=== PATIENT | female | born 1935 | race Caucasian/White ===

== ENCOUNTER → 2018-07-10 11:50 | Outpatient (CLI) | payer MEDICARE, OTHER, SELFPAY ==
--- NOTE | 2018-07-10 | DI.MRI.S_ITS ---
PROCEDURE: MR SHOULDER RT WO CON INDICATIONS: RIGHT SHOULDER PAIN TECHNIQUE: Noncontrast oblique coronal T2 fast spin echo with fat saturation, oblique sagittal T1 spin echo and T2 fast spin echo with fat saturation, axial T1 spin echo and T2 fast spin echo with fat saturation through the shoulder. COMPARISON: None. FINDINGS: Image quality: Excellent. Rotator cuff: There is full-thickness rupture of distal supraspinatus at its insertion on greater tuberosity of humeral head with 1.2 cm medial retraction of torn tendon fibers to the level of the acromion. Tendinosis and moderate grade articular surface partial-thickness tear involving distal infraspinatus is seen at its insertion on greater tuberosity of humeral head extending to the musculotendinous junction. Tendinosis of a moderate grade intrasubstance partial thickness involving distal subscapularis is seen extending to musculotendinous junction with suggestion of subscapularis muscle strain. Sagittal images demonstrate mild supraspinatus muscle atrophy. Bones and bursae: No bone marrow contusions or fractures. 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 The acromion demonstrates conventional anatomy, without an os acromiale. No pathologic subacromial-subdeltoid or subcoracoid bursal fluid is present. Capsule and soft tissues: In the absence of intra-articular contrast, there is signal abnormality and contour irregularity involving the superior anterior labrum from 12 to 2:00 position suggestive of superior anterior labral tear. The glenohumeral ligaments appear intact. The long head of the biceps tendon demonstrates normal location and morphology. The rotator interval appears normal, without fibrosis. The coracohumeral ligament is normal in thickness. IMPRESSION: 1. Full-thickness rupture of distal supraspinatus at its insertion on greater tuberosity of humeral head with 1.2 cm medial retraction of torn tendon fibers to the level of acromion. Mild supraspinatus muscle atrophy. 2. Tendinosis and moderately articular surface partial-thickness tear involving distal infraspinatus extending to musculotendinous junction. 3. Tendinosis and moderate grade intrasubstance partial thickness involving distal subscapularis extending to musculotendinous junction with suggestion of lateral subscapularis muscle strain. 4. Moderate acromioclavicular joint and glenohumeral joint osteoarthritis. 5. Suggestion of superior anterior labral tear from 12 to 2:00 position. Dictated by: Gerald Estevez M.D. on 07/10/2018 at 15:28 Approved by: Gerald Estevez M.D. on 07/10/2018 at 15:34
== END ==
PROVIDERS: PCP Physician Assistant Medical; Visit Provider Physician Assistant Medical
DX: M25.511 Pain in right shoulder (principal); M75.121 Complete rotator cuff tear or rupture of right shoulder, not specified as traumatic; M19.011 Primary osteoarthritis, right shoulder
CPT/HCPCS: 73221

== ENCOUNTER → 2020-04-13 13:30 | Outpatient (CLI) | payer MEDICARE, OTHER, SELFPAY ==
--- NOTE | 2020-04-13 13:32 | DI.RAD.S_ITS ---
PROCEDURE: XR HIP W PEL IF DONE LT 2V INDICATIONS: l hip pain TECHNIQUE: AP pelvis with lateral view(s) of the left hip(s). COMPARISON: None. FINDINGS: Bones: No fractures or dislocations. Degenerative disc height loss and endplate spurring in the lumbar spine. Pelvic ring appears intact. No suspicious bony lesions. Soft tissues: The visualized bowel gas pattern is normal. No suspicious soft tissue calcifications. Right hip cartilaginous calcification. IMPRESSION: Intact pelvis and left hip. Dictated by: Ena Guerrero M.D. on 04/13/2020 at 13:15 Approved by: Ena Guerrero M.D. on 04/13/2020 at 13:16
== END ==
PROVIDERS: PCP Physician Assistant Medical; Referring Provider Physician Assistant; Visit Provider Physician Assistant
DX: M25.552 Pain in left hip (principal)
CPT/HCPCS: 73502

== ENCOUNTER → 2020-08-14 13:26 | Outpatient (CLI) | payer MEDICARE, OTHER, SELFPAY ==
[2020-08-14 14:22] LABS: COVID19 -Nasal RAPID Negative (Negative)
== END ==
PROVIDERS: PCP Physician Assistant Medical; Visit Provider Physician Assistant
DX: Z20.822 Contact with and (suspected) exposure to COVID-19 (principal)
CPT/HCPCS: 87635; C9803

== ENCOUNTER 2020-08-17 07:18 | Day surgery (SDC) | payer MEDICARE, OTHER, SELFPAY ==
[2020-08-17] MEDS: PROPARACAINE 0.5% OPHTH SOL 2 DROPS EYE-OP (08:05)
[2020-08-17] MEDS: CATARACT EYE COMPOUND (10 DROPS/SYRINGE) 3 DROPS EYE-OP (08:10)
[2020-08-17 08:16] VITALS: BP 149/69; PULSE 76; RESP 16; TEMP 36.8; O2SAT 98; BMI 27.1
--- NOTE | 2020-08-17 08:57 | P.OP_ITS ---
Operative Date/Time/Diagnoses Pre-op diagnosis: Nuclear cataract right eye Procedure & Clinicians Procedure: Cataract Surgery Same procedure as scheduled: Yes Surgeon: Manny Olivia Anesthesia Type: MAC +/- and Sedation Operative Notes Procedure in detail: Patient brought to the operating suite. Tetracaine drops placed in the right eye. Marking instrument was used to radha the veritcal and horizontal meridians. Patient was prepped and draped in sterile manner. Wire lid speculum was placed in the eye. Marking instrument was used to radha the 20 degree meridian. Betadine drops were placed on the eye. This was irrigated. Lidocaine jelly was placed on the eye. A paracentesis port was created with a side-port blade. 0.1 mL 1% preservative free lidocaine was injected into the anterior chamber. The anterior chamber was deepened with viscoelastic. 2.6 mm keratome was used to create a temporal clear corneal incision. Cystotome and [place] forceps were used to create continuous tear capsulorrhexis. Balanced salt solution was used to hydro dissect the nucleus. The phacoemulsification handpiece was inserted and the nucleus was removed using the stop and chop technique. The irrigation aspiration handpiece was inserted and the remaining cortex was removed. Anterior chamber was deepened with viscoelastic. An Barfield [id number] intraocular lens with a power of 20.0 was injected into the capsular bag. Irrigation aspiration handpiece was inserted and the remaining viscoelastic was removed. The lens was rotated to the 20 degree meridian. Incision was hydrated with balanced salt solution and found to be leak free with pressure with Weck- Tanya sponges. 0.1 mL Vigamox injected anterior chamber. 0.3 mL Kenalog 10 mg was injected subconjunctivally. Lid speculum was removed. The patient left the operating room in excellent condition. Complications: none Post-operative Condition: stable Disposition: same day surgery
--- NOTE | 2020-08-17 08:57 | PM.PREOP ---
Pre-operative Note Interval Note History & Physical reviewed/Exam performed by Physician: Yes Changes to H&P: No
[2020-08-17] MEDS: PHENYLEPHRINE/LIDOCAINE VIAL (OR) 0.2 ML EYE-OP (09:11)
[2020-08-17] MEDS: MOXIFLOXACIN INJ 5 MG/ML VIAL EYE-OP (09:12)
[2020-08-17] MEDS: CHONDROIDTIN/SOD HYALURONATE 1.05 ML SYRINGE INTRAOCULA (09:12)
[2020-08-17] MEDS: LIDOCAINE JELLY 2% 5 ML 1 APPLIC TOP (09:12)
[2020-08-17] MEDS: TRIAMCINOLONE 50 MG/5 ML VIAL INJ (09:12)
[2020-08-17] MEDS: TETRACAINE 0.5% OPHTH DROPS 4 ML 2 DROPS EYE-OP (09:13)
[2020-08-17] MEDS: BALANCED SALT IRRIG SOLN NO.2 500 ML, EPINEPHrine 1 MG IRR (09:13)
[2020-08-17 09:35] VITALS: BP 123/77; PULSE 71; RESP 15; TEMP 36.4; O2SAT 99
== END 2020-08-17 09:50 | disposition home or self-care (01) ==
PROVIDERS: PCP Physician Assistant Medical; Referring Provider Ophthalmology; Visit Provider Ophthalmology
PROC: (CPT 66984; principal; 2020-08-17 09:15)
DX: H25.11 Age-related nuclear cataract, right eye (principal)
CPT/HCPCS: 66984; J0171; J2250; J3301; V2787

== ENCOUNTER → 2021-08-08 12:59 | Outpatient (CLI) | payer MEDICARE, OTHER, SELFPAY ==
[2021-08-08 15:26] LABS: COVID19 -Nasal RAPID Negative (Negative)
== END ==
PROVIDERS: PCP Physician Assistant Medical; Visit Provider Ophthalmology
DX: Z20.822 Contact with and (suspected) exposure to COVID-19 (principal)
CPT/HCPCS: 87635; C9803

== ENCOUNTER 2021-08-09 08:50 | Day surgery (SDC) | payer MEDICARE, OTHER, SELFPAY ==
[2021-08-09] MEDS: CATARACT EYE COMPOUND (10 DROPS/SYRINGE) 3 DROPS EYE-OP (09:31)
[2021-08-09] MEDS: PROPARACAINE 0.5% OPHTH SOL 2 DROPS EYE-OP (09:31)
[2021-08-09 09:43] VITALS: BP 139/62; PULSE 69; RESP 16; TEMP 37.3; O2SAT 100; BMI 25.7
--- NOTE | 2021-08-09 10:07 | SUR.OPER ---
Supine on eye stretcher, head on extension cradle secured with tape. Arms tucked at sides with blanket. Pillow under knees.
[2021-08-09] MEDS: TETRACAINE 0.5% OPHTH DROPS 4 ML 2 DROPS EYE-OP (10:28)
[2021-08-09] MEDS: LIDOCAINE 2% (GLYDO) 6 ML GEL TOP (10:28)
[2021-08-09] MEDS: TRIAMCINOLONE 50 MG/5 ML VIAL INJ (10:29)
[2021-08-09] MEDS: BALANCED SALT IRRIG SOLN NO.2 500 ML, EPINEPHrine 1 MG IRR (10:29)
[2021-08-09] MEDS: HYALURONATE SODIUM 30 MG-10 MG/ML SYRINGES 1 BOX INTRAOCULA (10:30)
[2021-08-09] MEDS: MOXIFLOXACIN INJ 4 MG/0.8 ML VIAL 0.5 MG EYE-OP (10:30)
[2021-08-09] MEDS: PHENYLEPHRINE/LIDOCAINE VIAL (OR) 0.2 ML EYE-OP (10:30)
[2021-08-09 10:45] VITALS: BP 129/63; PULSE 76; RESP 14; TEMP 36.5; O2SAT 100
--- NOTE | 2021-08-09 13:29 | P.OP.PRE_ITS ---
Pre-operative Note Interval Note History & Physical reviewed/Exam performed by Physician: Yes Changes to H&P: No Addendum Addendum Note: There are no non surgical alternatives for the patients condition. Deteriora tion of the patient's condition is expected. There is the possibility that delay results in more complex future surgery.
--- NOTE | 2021-08-09 13:30 | P.OP_ITS ---
Operative Date/Time/Diagnoses Pre-op diagnosis: Nuclear Cataract Left eye Post-op diagnosis: same Procedure & Clinicians Same procedure as scheduled: Yes Surgeon: Manny Olivia Anesthesia Type: MAC +/- and Sedation Operative Notes Procedure in detail: Patient brought to the operating suite. Tetracaine drops placed in the left eye. Marking instrument was used to radha the vertical and horizontal meridians. Patient was prepped and draped in sterile manner. Wire lid speculum was placed in the eye. Marking instrument was used to radha the 170 degree meridian. Be tadine drops were placed on the eye. This was irrigated. Lidocaine jelly was placed on the eye. A paracentesis port was created with a side-port blade. 0.1 mL 1% preservative free lidocaine was injected into the anterior chamber. The anterior chamber was deepened with viscoelastic. 2.6 mm keratome was used to create a temporal clear corneal incision. Cystotome and Utrata forceps were used to create continuous tear capsulorrhexis. Balanced salt solution was used to hydro dissect the nucleus. The phacoemulsification handpiece was inserted and the nucleus was removed using the stop and chop technique. The nucleus was very dense. The irrigation aspiration handpiece was inserted and the remaining cortex was removed. Anterior chamber was deepened with viscoelastic. An Barfield [id number] intraocular lens with a power of 21.0 was injected into the capsular bag. Irrigation aspiration handpiece was inserted and the remaining viscoelastic was removed. The lens was rotated to the 170 degree meridian. Incision was hydrated with balanced salt solution and found to be leak free with pressure with Weck- Tanya sponges. 0.1 mL Vigamox injected anterior chamber. 0.3 mL Kenalog 10 mg was injected subconjunctivally. Lid speculum was removed. The patient left the operating room in excellent condition. Complications: none Post-operative Condition: stable Disposition: same day surgery
== END 2021-08-09 10:54 | disposition home or self-care (01) ==
LOC: OR 08:55
PROVIDERS: PCP Physician Assistant Medical; Referring Provider Ophthalmology; Visit Provider Ophthalmology
PROC: (CPT 66984; principal; 2021-08-09 10:45)
DX: H25.12 Age-related nuclear cataract, left eye (principal)
CPT/HCPCS: 66984; J0171; J2250; J3301; V2787

== ENCOUNTER 2022-03-02 15:40 | Emergency (ER) | payer MEDICARE, OTHER, SELFPAY ==
[2022-03-02 15:57] VITALS: BP 137/90; PULSE 98; RESP 18; TEMP 36.7; O2SAT 98; BMI 31.1
--- NOTE | 2022-03-02 16:00 | ED.EXTPRO ---
HPI - Extremity Problem <Thanh Goncalves PA-C - Last Filed: 03/02/22 17:31> General Chief complaint: Extremity Problem,Nontraumatic Stated complaint: left leg cramped up, cannot walk on it Time Seen by Provider: 03/02/22 15:49 Source: patient Mode of arrival: Wheelchair History of Present Illness HPI Narrative: This is a 86-year-old female presents the emergency department and due to reported muscle cramping. Patient states that last night her left hamstring area began cramping up as well as today her right hamstring cramped up as she was stepping off of her boat. Patient did not fall or hit any part of her lower her upper body on the boat. States that she suspect this is due to dehydration as she reportedly does not drink enough liquids. Denies any pain currently. Denies any swelling in the lower extremities. Denies any numbness, tingling, or any other concerning signs or symptoms. Related Data Home Medications Medication Instructions Recorded Confirmed albuterol sulfate 90 mcg/actuation 1 puff inhalation Q6H PRN Allergic 02/27/19 04/13/20 aerosol inhaler (ProAir HFA) Symptoms amitriptyline 25 mg tablet 25 mg PO DAILY 02/27/19 04/13/20 aspirin 81 mg tablet,delayed 81 mg PO DAILY 02/27/19 04/13/20 release (Adult Aspirin Regimen) calcium carb-vit D3-minerals 600 1 tab PO BID 02/27/19 04/13/20 mg calcium-400 unit tablet triamterene 37.5 1 cap PO DAILY 02/27/19 04/13/20 mg-hydrochlorothiazide 25 mg capsule Previous Rx's Medication Instructions Recorded estradiol 0.01% (0.1 mg/gram) See Rx Instructions .Route 09/01/21 vaginal cream .COMPLEX #42.5 grams Allergies Allergy/AdvReac Type Severity Reaction Status Date / Time No Known Drug Allergies Allergy Verified 03/02/22 15:59 Review of Systems <Thanh Goncalves PA-C - Last Filed: 03/02/22 17:31> Review of Systems Narrative: GENERAL: Denies chills, fatigue, malaise, fever, sweats. HEENT: Denies sinus pain, ear pain, sore throat, difficulty swallowing, dizziness. RESPIRATORY: Denies dyspnea, cough, wheezing, hemoptysis, sputum. CARDIOVASCULAR: Denies chest pain, palpitations, orthopnea, edema, GASTROINTESTINAL: Denies nausea, vomiting, abdominal pain, diarrhea, constipation, melena. : Denies dysuria, frequency, incontinence, hematuria, urinary retention. MUSCULOSKELETAL: denies weakness, joint pain, or bony pain, denies swelling SKIN: Denies rash, skin lesions, or other NEUROLOGIC: Denies weakness, headache, numbness, change in speech, confusion, seizures, incoordination. PSYCHIATRIC: No concerning psychosocial issues. 12 point review of systems is negative except for those stated above Patient History <Thanh Goncalves PA-C - Last Filed: 03/02/22 17:31> Medical History (Updated 03/02/22 @ 17:31 by Thanh Goncalves PA-C) Asthma Cystocele Pelvic relaxation Surgical History (Updated 08/09/21 @ 09:50 by Colleen Severino RN) History of total abdominal hysterectomy and bilateral salpingo-oophorectomy S/P tonsillectomy Status post cataract extraction and insertion of intraocular lens of right eye Social History household members: spouse Smoking Status: Never smoker alcohol intake: never Smoking Status: Never smoker alcohol intake frequency: holidays/special occasions only Substance Use Type: does not use Exam <Thanh Goncalves PA-C - Last Filed: 03/02/22 17:31> Narrative Exam Narrative: GENERAL: Well-developed patient, in mild distress. HEAD: Atraumatic. Normocephalic. EYES: Pupils equal round and reactive. Extraocular motions intact. No scleral icterus. No injection or drainage. ENT: Nose without bleeding, purulent drainage. Throat without erythema, tonsillar hypertrophy or exudate. Airway patent. NECK: Trachea midline. Non tender CARDIOVASCULAR: Regular rate and rhythm without murmurs, gallops, or rubs. RESPIRATORY: Clear to auscultation. Breath sounds equal bilaterally. No wheezes, rales, or rhonchi. GASTROINTESTINAL: Abdomen soft, non-tender, nondistended. EXTREMITIES: No tenderness to palpation of the bilateral lower extremities. No obvious focal swelling noted. Neurovascularly intact. No tenderness to palpation of the hips, knees, or any other area of the lower extremities. BACK: Nontender without deformity or crepitance. No flank tenderness. NEURO: AOx3. SKIN: No rash or erythema of visible areas Initial Vital Signs Initial Vital Signs: Vital Signs Temperature 98.1 F 03/02/22 15:57 Pulse Rate 98 H 03/02/22 15:57 Respiratory Rate 18 03/02/22 15:57 Blood Pressure 137/90 03/02/22 15:57 Pulse Oximetry 98 03/02/22 15:57 Oxygen Delivery Method 03/02/22 15:57 <Jacqui Garcia DO - Last Filed: 03/06/22 03:06> Initial Vital Signs Initial Vital Signs: Vital Signs Temperature 98.1 F 03/02/22 15:57 Pulse Rate 98 H 03/02/22 15:57 Respiratory Rate 18 03/02/22 15:57 Blood Pressure 137/90 03/02/22 15:57 Pulse Oximetry 98 03/02/22 15:57 Oxygen Delivery Method 03/02/22 15:57 Course <Thanh Goncalves PA-C - Last Filed: 03/02/22 17:31> Orders Ordered: Discontinued Medications Sodium Chloride (Normal Saline 0.9%) 1,000 mls @ 1,000 mls/hr IV BOLUS ONE Stop: 03/02/22 16:58 Last Infusion: 03/02/22 17:47 Dose: 0 mls/hr Documented By: Admin: 03/02/22 16:26 Dose: 1,000 mls/hr Documented By: MONIKA Ketorolac Tromethamine (Ketorolac 30 Mg/Ml Vial) 15 mg IV NOW ONE Stop: 03/02/22 16:00 Last Admin: 03/02/22 16:26 Dose: 15 mg Documented By: MONIKA Vital Signs Vital signs: Vital Signs - 8 hr 03/02/22 15:57 Temperature 98.1 F Pulse Rate 98 H Respiratory Rate 18 Blood Pressure 137/90 Pulse Oximetry 98 Oxygen Delivery Method Room Air <Jacqui Garcia DO - Last Filed: 03/06/22 03:06> Orders Ordered: Discontinued Medications Sodium Chloride (Normal Saline 0.9%) 1,000 mls @ 1,000 mls/hr IV BOLUS ONE Stop: 03/02/22 16:58 Last Infusion: 03/02/22 17:47 Dose: 0 mls/hr Documented By: Admin: 03/02/22 16:26 Dose: 1,000 mls/hr Documented By: MONIKA Ketorolac Tromethamine (Ketorolac 30 Mg/Ml Vial) 15 mg IV NOW ONE Stop: 03/02/22 16:00 Last Admin: 03/02/22 16:26 Dose: 15 mg Documented By: MONIKA Vital Signs Vital signs: Vital Signs - 8 hr 03/02/22 15:57 Temperature 98.1 F Pulse Rate 98 H Respiratory Rate 18 Blood Pressure 137/90 Pulse Oximetry 98 Oxygen Delivery Method Room Air MDM - Extremity (Nontraumatic) <Thanh Goncalves PA-C - Last Filed: 03/02/22 17:31> Lab Data Result diagrams: 03/02/22 16:05 03/02/22 16:05 Labs: Lab Results 03/02/22 03/02/22 Range/Units 16:05 16:05 WBC 10.2 (4.5-11.0) X10^3/uL RBC 4.49 (4.0-5.2) X10^6/uL Hgb 13.6 (12.0-16.0) g/dL Hct 40.0 (36-46) % MCV 89.0 (80-100) fL MCH 30.4 (26-34) PG MCHC 34.1 (30-36) % RDW 14.3 (11.6-14.8) % Plt Count 252 (150-400) X10^3/uL Neut % (Auto) 72.6 (50-75) % Lymph % (Auto) 19.2 L (25-40) % [place] % (Auto) 6.0 (3-14) % Eos % (Auto) 1.7 L (2-4) % Baso % (Auto) 0.5 (0-2) % Neut # (Auto) 7400 H (8033-0293) /uL Lymph # (Auto) 1900 (4050-7800) /uL [place] # (Auto) 600 (0-900) /uL Eos # (Auto) 200 (0-450) /uL Baso # (Auto) 100 (0-100) /uL Sodium 140 (137-145) mmol/L Potassium 3.8 (3.4-5.1) mmol/L Chloride 103 (98-107) mmol/L Carbon Dioxide 25 (22-32) mmol/L BUN 20 H (7-17) mg/dL Creatinine 0.97 (0.52-1.04) mg/dL Estimated GFR 57 L (>60) mL/min BUN/Creatinine Ratio 20.6 (6-22) Glucose 119 H (80-110) mg/dL Calcium 10.0 (8.4-10.2) mg/dL Total Bilirubin 0.4 (0.2-1.3) mg/dL AST 48 H (14-36) IU/L ALT 21 (<35) IU/L Alkaline Phosphatase 86 (38-126) U/L Total Protein 8.2 (6.3-8.2) g/dL Albumin 4.7 (3.5-5.0) g/dL Globulin 3.5 (1.7-4.1) g/dL Albumin/Globulin Ratio 1.3 (1.0-2.8) MDM Narrative Medical decision making narrative: This is a 86-year-old female presents to the emergency department due to suspected muscular left lower extremity pain. On exam patient did not present with any findings concerning for DVT and patient has no risk factors. Suspect the muscular cramping she is describing is due to mild dehydration. Lab work showed no concerning electrolyte abnormalities. Patient was given a L fluids and Toradol. Patient declined muscle relaxants as she did not want to ?feel woozy?. Patient did not describe hitting any part of her extremities or any other trauma and low concern for any fracture. Recommend patient follow-up with primary care provider for possible referral to physical therapy for strengthening exercises. <Jacqui Garcia, DO - Last Filed: 03/06/22 03:06> Lab Data Labs: Lab Results 03/02/22 03/02/22 Range/Units 16:05 16:05 WBC 10.2 (4.5-11.0) X10^3/uL RBC 4.49 (4.0-5.2) X10^6/uL Hgb 13.6 (12.0-16.0) g/dL Hct 40.0 (36-46) % MCV 89.0 (80-100) fL MCH 30.4 (26-34) PG MCHC 34.1 (30-36) % RDW 14.3 (11.6-14.8) % Plt Count 252 (150-400) X10^3/uL Neut % (Auto) 72.6 (50-75) % Lymph % (Auto) 19.2 L (25-40) % [place] % (Auto) 6.0 (3-14) % Eos % (Auto) 1.7 L (2-4) % Baso % (Auto) 0.5 (0-2) % Neut # (Auto) 7400 H (0009-1488) /uL Lymph # (Auto) 1900 (2778-2204) /uL [place] # (Auto) 600 (0-900) /uL Eos # (Auto) 200 (0-450) /uL Baso # (Auto) 100 (0-100) /uL Sodium 140 (137-145) mmol/L Potassium 3.8 (3.4-5.1) mmol/L Chloride 103 (98-107) mmol/L Carbon Dioxide 25 (22-32) mmol/L BUN 20 H (7-17) mg/dL Creatinine 0.97 (0.52-1.04) mg/dL Estimated GFR 57 L (>60) mL/min BUN/Creatinine Ratio 20.6 (6-22) Glucose 119 H (80-110) mg/dL Calcium 10.0 (8.4-10.2) mg/dL Total Bilirubin 0.4 (0.2-1.3) mg/dL AST 48 H (14-36) IU/L ALT 21 (<35) IU/L Alkaline Phosphatase 86 (38-126) U/L Total Protein 8.2 (6.3-8.2) g/dL Albumin 4.7 (3.5-5.0) g/dL Globulin 3.5 (1.7-4.1) g/dL Albumin/Globulin Ratio 1.3 (1.0-2.8) Discharge Plan Departure Patient Disposition: Home Clinical Impression: Muscle pain Instructions: DI for Hamstring Strain Activity Restrictions/Additional Instructions: Thank you for coming to the [facility] Emergency Department today. I am not seeing any clinical signs of a life-threatening blood clot. As we discussed I do not think you need x-rays. Your lab work shows no concerning abnormalities other than mild dehydration. I recommend [id number] electrolyte supplements. Recommended follow-up with the primary care provider for a referral to physical therapy for muscle strengthening exercises. I hope you feel better soon. Prescriptions: No Action estradiol 0.01 % (0.1 mg/gram) cream See Rx Instructions .ROUTE .COMPLEX Qty: 42.5 0RF Dose Instruction: INSERT 0.5G VAGINALLY TWICE WEEKLY Rx Instructions: INSERT 0.5G VAGINALLY TWICE WEEKLY aspirin [Adult Aspirin Regimen] 81 mg tablet,delayed release (DR/EC) 81 mg PO DAILY triamterene-hydrochlorothiazid 37.5-25 mg capsule 1 cap PO DAILY amitriptyline 25 mg tablet 25 mg PO DAILY albuterol sulfate [ProAir HFA] 90 mcg/actuation HFA aerosol inhaler 1 puff INHALATION Q6H PRN (Reason: Allergic Symptoms) calcium carbonate-vit D3-min 600 mg calcium- 400 unit tablet 1 tab PO BID Referrals: Nery Ross PA-C [Primary Care Provider] - Visit Report Forms: Patient Portal/API <Jacqui Garcia DO - Last Filed: 03/06/22 03:06> Cosign ED Attending Cosignature Attestation: I was immediately available in the department for consultation. Documentation has been reviewed.
[2022-03-02] MEDS: KETOROLAC 30 MG/ML VIAL 15 MG IV (16:26)
[2022-03-02] MEDS: SODIUM CHLORIDE 0.9% 1,000 ML 1000 ML IV (16:26)
[2022-03-02 16:50] LABS: Add Manual Diff / Slide Review NO; Basophils Absolute Auto 100 /uL (0-100); Basophils Percent Auto 0.5 % (0-2); Eosinophils Absolute Auto 200 /uL (0-450); Eosinophils Percent Auto 1.7 % (2-4); Hemoglobin 13.6 g/dL (12.0-16.0); Lymphocytes Absolute Auto 1900 /uL (1100-4500); Lymphocytes Percent Auto 19.2 % (25-40); Mean Corpuscular HGB Conc 34.1 % (30-36); Mean Corpuscular Hemoglobin 30.4 PG (26-34); Monocytes Absolute Auto 600 /uL (0-900); Neutrophils Absolute Auto 7400 /uL (1500-7000); Neutrophils Percent Auto 72.6 % (50-75); Platelet Count 252 X10^3/uL (150-400); Red Blood Cell Count 4.49 X10^6/uL (4.0-5.2); Red Cell Distribution Width 14.3 % (11.6-14.8); White Blood Cell Count 10.2 X10^3/uL (4.5-11.0)
[2022-03-02 17:02] LABS: Alanine Aminotransferase 21 IU/L (<35); Albumin 4.7 g/dL (3.5-5.0); Albumin Globulin Ratio 1.3 (1.0-2.8); Alkaline Phosphatase 86 U/L (38-126); Aspartate Aminotransferase 48 IU/L (14-36); BUN Creatinine Ratio 20.6 (6-22); Bilirubin Total 0.4 mg/dL (0.2-1.3); Blood Urea Nitrogen 20 mg/dL (7-17); Carbon Dioxide 25 mmol/L (22-32); Chloride 103 mmol/L (98-107); Estimated Glomerular Filt Rate 57 mL/min (>60); Globulin 3.5 g/dL (1.7-4.1); Glucose 119 mg/dL (80-110); HEMOLYSIS 37 (0-50); Potassium 3.8 mmol/L (3.4-5.1); Sodium 140 mmol/L (137-145); Total Protein 8.2 g/dL (6.3-8.2)
--- NOTE | 2022-03-02 18:14 | PC.NURSE ---
Pt reports that she was getting out of her yacht and lifted her L leg and felt a pulling pain in her L hamstring area. Pt unable to ambulate on her own. given torodol with minimal relief however pt was able to ambulate alone with a walker. instructed by BRITTANY Goncalves to ice and heat her hamstring and take tylenol and ibuprofen at home and complete PT ordered by her PCM at follow up.
== END 2022-03-02 18:00 | disposition home or self-care (01) ==
PROVIDERS: Emergency Provider Physician Assistant Medical; PCP Physician Assistant Medical
DX: S86.902A Unspecified injury of unspecified muscle(s) and tendon(s) at lower leg level, left leg, initial encounter (principal)
CPT/HCPCS: 80053; 85025; 96361; 96374; 99283; 99284; J1885

== ENCOUNTER 2022-06-21 12:45 | Emergency (ER) | payer MEDICARE, OTHER, SELFPAY ==
[2022-06-21 12:50] VITALS: BP 200/79; PULSE 89; RESP 16; TEMP 36.4; O2SAT 98; BMI 24.9
--- NOTE | 2022-06-21 12:54 | DI.RAD.S_ITS ---
PROCEDURE: XR CHEST 1V INDICATIONS: chest pain TECHNIQUE: One view of the chest was acquired. COMPARISON: None. FINDINGS: Surgical changes and devices: None. Lungs and pleura: Lungs are clear. No pleural effusions or pneumothorax. Mediastinum: Mediastinal contours appear normal. Heart size is normal. Bones and chest wall: No suspicious bony lesions. Overlying soft tissues appear unremarkable. IMPRESSION: No acute cardiopulmonary findings. Dictated by: Susannah Sanchez M.D. on 06/21/2022 at 13:47 Approved by: Susannah Sanchez M.D. on 06/21/2022 at 13:47
[2022-06-21 13:25] VITALS: PULSE 79; RESP 20; O2SAT 98
--- NOTE | 2022-06-21 13:27 | ED_ITS ---
HPI - Chest Pain General Chief Complaint: Chest Pain Stated Complaint: Chest pains Time Seen by Provider: 06/21/22 13:16 Source: patient Mode of arrival: Ambulatory Limitations: no limitations History of Present Illness HPI narrative: Patient is an 87-year-old female. Here for evaluation of several minutes of mid chest discomfort that she states was sharp. Not worse with palpation or movement. She states that it started this morning after she got home from a flight from [place]. She is no chest pain. No shortness of breath. No cough. She does have some ear fullness. She has had pain like this in the past in her chest and was last time that she had ear fullness after being on the flight. No nausea vomiting. She is currently asymptomatic. Related Data Home Medications Medication Instructions Recorded Confirmed albuterol sulfate 90 mcg/actuation 1 puff inhalation Q6H PRN Allergic 02/27/19 06/21/22 aerosol inhaler (ProAir HFA) Symptoms amitriptyline 25 mg tablet 25 mg PO DAILY 02/27/19 06/21/22 aspirin 81 mg tablet,delayed 81 mg PO DAILY 02/27/19 06/21/22 release (Adult Aspirin Regimen) calcium carb-vit D3-minerals 600 1 tab PO BID 02/27/19 04/13/20 mg calcium-400 unit tablet triamterene 37.5 1 cap PO DAILY 02/27/19 06/21/22 mg-hydrochlorothiazide 25 mg capsule Previous Rx's Medication Instructions Recorded estradiol 0.01% (0.1 mg/gram) See Rx Instructions .Route 09/01/21 vaginal cream .COMPLEX #42.5 grams Allergies Allergy/AdvReac Type Severity Reaction Status Date / Time No Known Drug Allergies Allergy Verified 03/02/22 15:59 Review of Systems Constitutional Constitutional: Reports system reviewed and no additional complaints, except as documented ENT Ears, Nose, Mouth, and Throat: Reports system reviewed and no additional complaints, except as documented Cardiovascular Cardiovascular: Reports system reviewed and no additional complaints, except as documented Respiratory Respiratory: Reports system reviewed and no additional complaints, except as documented Gastrointestinal Gastrointestinal: Reports system reviewed and no additional complaints, except as documented Integumentary/Breasts Skin/Breast: Reports system reviewed and no additional complaints, except as documented Hematologic/Lymphatic On Anticoagulants: No Patient History Medical History Asthma Cystocele Pelvic relaxation Surgical History (Updated 08/09/21 @ 09:50 by Colleen Severino RN) History of total abdominal hysterectomy and bilateral salpingo-oophorectomy S/P tonsillectomy Status post cataract extraction and insertion of intraocular lens of right eye Social History household members: spouse Smoking Status: Never smoker alcohol intake: never Smoking Status: Never smoker alcohol intake frequency: holidays/special occasions only Substance Use Type: does not use Exam Initial Vital Signs Initial Vital Signs: Vital Signs Temperature 97.6 F 06/21/22 12:50 Pulse Rate 89 06/21/22 12:50 Respiratory Rate 16 06/21/22 12:50 Blood Pressure 200/79 H 06/21/22 12:50 Pulse Oximetry 98 06/21/22 12:50 Oxygen Delivery Method 06/21/22 12:50 Const General: cooperative, comfortable and No ill appearing HENMT Head: normal to inspection and normocephalic Ears: TM's normal bilaterally Mouth: moist mucous membranes Chest Chest: normal inspection of the chest Resp Effort & Inspection: normal respiratory effort Auscultation: clear to auscultation bilaterally Cardio Rate: regular rate Skin General: no rashes or lesions noted Neuro General: patient alert, patient awake and moves all extremities Extrem General: normal to inspection and capillary refill normal Course Orders Ordered: ED Orders 06/21/22 12:54 XR chest 1V Stat EKG-12 Lead Stat 06/21/22 13:20 Complete Blood Count AUTO DIFF Stat Comprehensive Metabolic Panel Stat Lipase Stat Magnesium Stat Partial Thromboplastin Time Stat Prothrombin Time INR Stat Troponin & CK Cardiac Panel Stat Vital Signs Vital signs: Vital Signs - 8 hr 06/21/22 12:50 06/21/22 13:25 06/21/22 13:30 Temperature 97.6 F Pulse Rate 89 79 79 Respiratory Rate 16 20 17 Blood Pressure 200/79 H Pulse Oximetry 98 98 98 Oxygen Delivery Method Room Air 06/21/22 14:00 06/21/22 14:00 Temperature Pulse Rate 73 Respiratory Rate 19 Blood Pressure 143/69 H Pulse Oximetry 98 Oxygen Delivery Method MDM - Chest Pain Lab Data Attestation: I reviewed the patient's lab results. Result diagrams: 06/21/22 13:20 06/21/22 13:20 Labs: Lab Results 06/21/22 06/21/22 06/21/22 Range/Units 13:20 13:20 13:20 WBC 9.1 (4.5-11.0) X10^3/uL RBC 4.72 (4.0-5.2) X10^6/uL Hgb 14.0 (12.0-16.0) g/dL Hct 42.1 (36-46) % MCV 89.2 (80-100) fL MCH 29.7 (26-34) PG MCHC 33.3 (30-36) % RDW 14.0 (11.6-14.8) % Plt Count 288 (150-400) X10^3/uL Neut % (Auto) 58.0 (50-75) % Lymph % (Auto) 27.6 (25-40) % [place] % (Auto) 9.3 (3-14) % Eos % (Auto) 4.1 H (2-4) % Baso % (Auto) 1.0 (0-2) % Neut # (Auto) 5300 (1496-5177) /uL Lymph # (Auto) 2500 (1461-7686) /uL [place] # (Auto) 800 (0-900) /uL Eos # (Auto) 400 (0-450) /uL Baso # (Auto) 100 (0-100) /uL PT 12.0 (10.1-12.7) SECONDS INR 1.0 (0.9-1.3) APTT 24 L (26-36) SECONDS Sodium 136 L (137-145) mmol/L Potassium 4.1 (3.4-5.1) mmol/L Chloride 98 (98-107) mmol/L Carbon Dioxide 25 (22-32) mmol/L BUN 30 H (7-17) mg/dL Creatinine 0.91 (0.52-1.04) mg/dL Estimated GFR > 60 (>60) mL/min BUN/Creatinine Ratio 33.0 H (6-22) Glucose 98 (80-110) mg/dL Calcium 10.5 H (8.4-10.2) mg/dL Magnesium 1.9 (1.6-2.3) mg/dL Total Bilirubin 0.5 (0.2-1.3) mg/dL AST 37 H (14-36) IU/L ALT 24 (<35) IU/L Alkaline Phosphatase 95 (38-126) U/L Total Creatine Kinase 131 (30-135) U/L CK-MB (CK-2) 3.67 H (<2.37) ng/mL CK-MB (CK-2) Rel Index 2.8 (1.5-5.0) % Troponin I < 0.012 (0.01-0.034) ng/mL Total Protein 8.3 H (6.3-8.2) g/dL Albumin 4.7 (3.5-5.0) g/dL Globulin 3.6 (1.7-4.1) g/dL Albumin/Globulin Ratio 1.3 (1.0-2.8) Lipase 91 (23-300) U/L Imaging Data Chest x-ray: Radiologist's Impression: [address] [id number] XRay Report Signed Patient: Roberta Kothari MR#: [id number] : 1935 Acct:[id number] Age/Sex: 87 / F Date of Service: 06/21/22 Loc: ED Accession Number: [id number] ?? Procedure: XR chest 1V Ordering Provider: Juan David Pacheco D.O. PROCEDURE:? XR CHEST 1V ? INDICATIONS:? chest pain ? TECHNIQUE:? One view of the chest was acquired.? ? COMPARISON:? None. ? FINDINGS:? ? Surgical changes and devices:? None.? ? Lungs and pleura:? Lungs are clear.? No pleural effusions or pneumothorax.? ? Mediastinum:? Mediastinal contours appear normal.? Heart size is normal.? ? Bones and chest wall:? No suspicious bony lesions.? Overlying soft tissues appear unremarkable.? ? IMPRESSION:? No acute cardiopulmonary findings. ? ? Dictated by: Susannah Sanchez M.D. on 06/21/2022 at 13:47 ? ? Approved by: Susannah Sanchez M.D. on 06/21/2022 at 13:47? ECG Data Attestation: I personally reviewed and interpreted this ECG as follows: Interpretation: Sinus rhythm Ventricular rate is 78 Normal axis Normal QRS Normal QTC No ST T wave changes MDM Narrative Medical decision making narrative: Patient is well-appearing. Seconds/minutes of discomfort earlier this morning. No chest pain. No shortness of breath. Not hypoxic. Not tachycardic. No hemoptysis. No current symptoms. EKG is unremarkable. Troponin is negative. Low suspicion for pulmonary embolism given her physical exam. Her ear exam is unremarkable. Low suspicion for ACS. Will have the patient follow-up with primary provider for follow-up. Will continue to take all of her medications as directed. She was given return precautions. She expressed understanding and agreement. Discharge Plan Departure Patient Disposition: Home Clinical Impression: Atypical chest pain Instructions: DI for Atypical Chest Pain Activity Restrictions/Additional Instructions: Recommend you continue to take all of your medications as directed. Contact your primary doctor for follow-up. Return to the emergency department for any new or worsening symptoms. Prescriptions: No Action estradiol 0.01 % (0.1 mg/gram) cream See Rx Instructions .ROUTE .COMPLEX Qty: 42.5 0RF Dose Instruction: INSERT 0.5G VAGINALLY TWICE WEEKLY Rx Instructions: INSERT 0.5G VAGINALLY TWICE WEEKLY aspirin [Adult Aspirin Regimen] 81 mg tablet,delayed release (DR/EC) 81 mg PO DAILY triamterene-hydrochlorothiazid 37.5-25 mg capsule 1 cap PO DAILY amitriptyline 25 mg tablet 25 mg PO DAILY albuterol sulfate [ProAir HFA] 90 mcg/actuation HFA aerosol inhaler 1 puff INHALATION Q6H PRN (Reason: Allergic Symptoms) calcium carbonate-vit D3-min 600 mg calcium- 400 unit tablet 1 tab PO BID Referrals: Nery Ross PA-C [Primary Care Provider] - Visit Report Forms: Patient Portal/API
[2022-06-21 13:30] VITALS: PULSE 79; RESP 17; O2SAT 98
[2022-06-21 13:40] LABS: Add Manual Diff / Slide Review NO; Basophils Absolute Auto 100 /uL (0-100); Eosinophils Absolute Auto 400 /uL (0-450); Eosinophils Percent Auto 4.1 % (2-4); Hematocrit 42.1 % (36-46); Lymphocytes Absolute Auto 2500 /uL (1100-4500); Lymphocytes Percent Auto 27.6 % (25-40); Mean Corpuscular HGB Conc 33.3 % (30-36); Mean Corpuscular Hemoglobin 29.7 PG (26-34); Mean Corpuscular Volume 89.2 fL (80-100); Monocytes Absolute Auto 800 /uL (0-900); Monocytes Percent Auto 9.3 % (3-14); Neutrophils Absolute Auto 5300 /uL (1500-7000); Platelet Count 288 X10^3/uL (150-400); Red Blood Cell Count 4.72 X10^6/uL (4.0-5.2); White Blood Cell Count 9.1 X10^3/uL (4.5-11.0)
[2022-06-21 13:57] LABS: PTT Partial Thromboplastin Tim 24 SECONDS (26-36)
[2022-06-21 13:59] LABS: Alanine Aminotransferase 24 IU/L (<35); Albumin 4.7 g/dL (3.5-5.0); Albumin Globulin Ratio 1.3 (1.0-2.8); Alkaline Phosphatase 95 U/L (38-126); Aspartate Aminotransferase 37 IU/L (14-36); Bilirubin Total 0.5 mg/dL (0.2-1.3); Blood Urea Nitrogen 30 mg/dL (7-17); Calcium 10.5 mg/dL (8.4-10.2); Carbon Dioxide 25 mmol/L (22-32); Chloride 98 mmol/L (98-107); Creatine Kinase 131 U/L (30-135); Estimated Glomerular Filt Rate > 60 mL/min (>60); Globulin 3.6 g/dL (1.7-4.1); Glucose 98 mg/dL (80-110); HEMOLYSIS 19 (0-50); Lipase 91 U/L (23-300); Magnesium 1.9 mg/dL (1.6-2.3); Potassium 4.1 mmol/L (3.4-5.1); Sodium 136 mmol/L (137-145); Total Protein 8.3 g/dL (6.3-8.2)
[2022-06-21 14:00] VITALS: BP 143/69; PULSE 73; RESP 19; O2SAT 98
[2022-06-21 14:10] LABS: Troponin I < 0.012 ng/mL (0.01-0.034)
[2022-06-21 14:13] LABS: CKMB % Relative Index 2.8 % (1.5-5.0); Creatine Kinase MB 3.67 ng/mL (<2.37)
== END 2022-06-21 14:24 | disposition home or self-care (01) ==
PROVIDERS: Emergency Provider Emergency Medicine; PCP Physician Assistant Medical
DX: R07.89 Other chest pain (principal)
CPT/HCPCS: 36415; 71045; 80053; 82550; 82553; 83690; 83735; 84484; 85025; 85610; 85730; 93005; 99284

== ENCOUNTER → 2023-05-24 14:46 | Outpatient (CLI) | payer MEDICARE, OTHER, SELFPAY ==
--- NOTE | 2023-05-24 | DI.ECHO.S_ITS ---
[facility]---------+ [facility] +---------+ : : [address] : : : : [id number] : : : : Phone: [phone]+ Echocardiogram Report + + :Name: BOBBI GAN Study Date: 05/24/2023 Height: 63 in : :[facility] ReadingLocation: Weight: 124 lb : : Gender: Female BSA: 1.6 m2 : :: 1935 Age: 87 yrs BP: 166/76 mmHg: :Reason For Study: Muscle Weakness : :Ordering Physician: SIMON, : :NARENDRA Performed By: Joanna Miles : :Referring: NARENDRA MONTES : + + Interpretation Summary 1) Mildly increased left ventricular thickness (concentric) with normal size, normal wall motion, and normal systolic function (EF 65-70%). 2) Normal right ventricular size and function. 3) There is mild calcific mitral stenosis with mean gradient of 6 mmHg 4) Hypertension present during the study (BP 166/76mmHg) 5) No prior Echo available for comparison. Procedure: A two-dimensional transthoracic echocardiogram with color flow and Doppler was performed. The study quality was technically adequate. There is no prior echocardiogram noted for this patient. The patient was in normal sinus rhythm during the exam. Left Ventricle: The left ventricle is normal in size. There is mild concentric left ventricular hypertrophy. The ejection fraction is estimated to be 65-70%. Diastolic function could not be accurately assessed due to contradictory data. Right Ventricle: The right ventricle is normal in size and function. Atria: The left atrial size is normal. Right atrial size is normal. There is no Doppler evidence for an interatrial shunt. Mitral Valve: The mitral valve leaflets appear mildly thickened, but open well. There is moderate to severe mitral annular calcification. There is mild mitral stenosis. The mitral valve mean gradient is 6 mmHg. There is trace mitral regurgitation. Aortic Valve: The aortic valve is trileaflet. The aortic valve is slightly calcified. There is no aortic valve stenosis. There is trace aortic regurgitation. Tricuspid Valve: The tricuspid valve is normal. There is no tricuspid stenosis. There is trace tricuspid regurgitation. The right ventricular systolic pressure is estimated to be at least 28 mmHg based on an estimated right atrial pressure of 3 mm Hg. Pulmonic Valve: The pulmonic valve is not well visualized. There is no pulmonic valvular stenosis. There is trace pulmonic regurgitation. Great Vessels: The aortic root is normal size. The ascending aorta is normal in size. The pulmonary artery is normal size. The IVC is of normal diameter and collapses greater than 50% with a sniff. This suggests a low right atrial pressure of 3 mm Hg. Pericardium/ Pleura There is no pericardial effusion. There is no pleural effusion. MMode/2D Measurements & Calculations LVIDd: 3.5 cm LVOT diam: 1.7 cm LVIDs: 1.8 cm Ao root diam: 2.9 cm FS: 48.6 % asc Aorta Diam: 2.8 cm IVSd: 0.80 cm LVPWd: 1.2 cm LV rose. diameter/BSA (cm/m^2): 2.2 LV sys. diameter/BSA (cm/m^2): 1.1 LA A2 area: 18.8 cm2 RA long axis: 4.2 cm LA A4 area: 11.2 cm2 RA area: 9.8 cm2 LA length (vol): 5.4 cm RA vol: 19.3 ml LA vol: 33.2 ml RA : 12.2 ml/m2 LA vol index: 21.0 ml/m2 RVD1 (basal): 2.9 cm LVLs ap4: 4.8 cm LVLd ap2: 5.9 cm TAPSE_phl: 2.0 cm LVLs ap2: 5.2 cm Doppler Measurements & Calculations Ao V2 max: 126.0 cm/sec LVOT Max Chandler: 114.0 cm/sec Ao V2 mean: 86.8 cm/sec LV V1 max P.2 mmHg Ao max P.0 mmHg LV V1 VTI: 22.0 cm Ao mean P.5 mmHg ALESIA(I,D): 2.0 cm2 Ao V2 VTI: 24.4 cm ALESIA(V,D): 2.1 cm2 sev ratio: 0.90 ALESIA indexed to BSA (cm^2/m^2): 1.3 MV E max chandler: 106.0 cm/sec TR max chandler: 250.0 cm/sec MV A max chandler: 161.0 cm/sec TR max P.0 mmHg MV E/A: 0.66 PA V2 max: 106.0 cm/sec Med Peak E' Chandler: 5.2 cm/sec PA V2 mean: 70.6 cm/sec E/E' med: 20.5 PA mean P.0 mmHg Lat Peak E' Chandler: 6.9 cm/sec PA pr(Accel): 27.7 mmHg E/E' lat: 15.5 E/e' average: 18.0 MV dec time: 0.24 sec MVA(VTI): 1.2 cm2 MV V2 mean: 111.5 cm/sec SV(LVOT): 49.8 ml MV mean P.5 mmHg MV V2 VTI: 40.7 cm AV VR_phl: 0.90 ALESIA(VTI)/BSA_phl: 1.3 Reading Physician:06:11 PM
--- NOTE | 2023-05-24 | DI.US.S_ITS ---
PROCEDURE: US CAROTID DOPPLER BI INDICATIONS: HYPERTENSION, MUSCLE WEAKNESS TECHNIQUE: Color and pulse Doppler interrogation was performed of both carotid systems, with image documentation and velocity measurements. COMPARISON: None. FINDINGS: Stenosis calculations are based on SRU (Society of Radiologists in Ultrasound) criteria. The flow velocities and the arterial waveforms are normal within both carotid arterial systems. Atherosclerotic plaque is seen on both sides. The estimated degree of internal carotid artery stenosis is less than 50%. Antegrade flow is confirmed within both vertebral arteries. IMPRESSION: No hemodynamically significant stenosis is seen. Atherosclerotic plaque is noted bilaterally. Dictated by: August Cohen M.D. on 05/24/2023 at 15:23 Approved by: August Cohen M.D. on 05/24/2023 at 15:24
--- NOTE | 2023-05-24 | DI.MRI.S_ITS ---
PROCEDURE: MR HEAD/BRAIN WO/W CON INDICATIONS: HYPERTENSION, MUSCLE WEAKNESS TECHNIQUE: Noncontrast axial T1 spin echo, axial T2 fast spin echo, sagittal and axial FLAIR, coronal T2 fast spin echo, axial gradient echo, axial diffusion and ADC through the brain. After the administration of contrast, axial and coronal and sagittal T1 spin echo with fat saturation through the brain. COMPARISON: None. FINDINGS: Image quality: Excellent. CSF spaces: Basal cisterns are patent. No extra-axial fluid collections. Ventricles are normal in size and shape. Brain: No midline shift. No intracranial bleeds or masses. No abnormal intracranial enhancement. There is cerebral volume loss for age. There is periventricular white matter chronic small vessel ischemic change. The brainstem appears normal. Diffusion-weighted images demonstrate no acute ischemic insults. No chronic ischemic insults. Normal intravascular flow voids are present. Skull and face: There is a right temporal scalp lesion seen, with irregularity. Susceptibility artifact can be seen within this region. No abnormal enhancement can be seen at this site. Calvarial marrow is normal in signal. Orbits appear normal. Note is made of bilateral lens replacements. Sinuses: Moderate to prominent left-sided mastoid air cell fluid can be seen. No right-sided mastoid air cell fluid can be seen. No significant paranasal sinus mucosal thickening is seen. IMPRESSION: No imaging explanation is found for this patient's presenting symptoms. No findings of acute or subacute infarction can be seen. No masses or abnormal enhancement can be seen. Presumed postoperative change of the right temporal scalp. Please correlate with known patient history. Focal left mastoid air cell fluid is seen. Please correlate with potential clinical mastoiditis. Dictated by: August Cohen M.D. on 05/24/2023 at 16:37 Approved by: August Cohen M.D. on 05/24/2023 at 16:39
== END ==
PROVIDERS: PCP Physician Assistant Medical; Referring Provider Physician Assistant Medical; Visit Provider Physician Assistant Medical
DX: I05.0 Rheumatic mitral stenosis (principal); I65.23 Occlusion and stenosis of bilateral carotid arteries; M62.81 Muscle weakness (generalized); R27.0 Ataxia, unspecified; I10 Essential (primary) hypertension
CPT/HCPCS: 70553; 93306; 93880

== ENCOUNTER → 2023-08-10 11:56 | Outpatient (CLI) | payer MEDICARE, OTHER, SELFPAY ==
--- NOTE | 2023-08-10 12:02 | DI.CT.S_ITS ---
PROCEDURE: CT CHEST ABD PEL W CON INDICATIONS: Weight loss TECHNIQUE: After the administration of intravenous contrast, 5 mm thick sections acquired from the lung apices to the symphysis. 5 mm coronal and sagittal reformats were performed, with additional 7 mm MIP reformats through the lungs. For radiation dose reduction, the following was used: automated exposure control, adjustment of mA and/or kV according to patient size. COMPARISON: None. FINDINGS: Image quality: Excellent. CHEST: Lower Neck: No enlarged lymph nodes. Thyroid: No thyroid nodules which require sonographic follow up, per consensus guidelines. Axillae: No enlarged lymph nodes. Chest Wall: Unremarkable. Lungs and Pleura: No pneumothorax or pleural effusions. A 2 mm nodule is seen at the right upper lobe laterally (56/5). Additional 2 mm nodule is seen in the right upper lobe (107/5). These are considered benign given their small size. Linear scarring or atelectasis is seen in the right middle lobe. No consolidation or suspicious nodules. Heart: Heart size is borderline enlarged. No pericardial effusion. Coronary artery calcifications and mitral annular calcifications are present. Thoracic Vessels: The aorta and pulmonary arteries demonstrate normal size. Mediastinum and [place]: No enlarged lymph nodes. Esophagus: No wall thickening. No hiatal hernia. ABDOMEN: Liver: No solid mass. Gallbladder: No radiopaque gallstones or wall thickening. Biliary ducts: No biliary dilation. Pancreas: No ductal dilation. Spleen: Size is within normal limits. Adrenal Glands: No adrenal nodules. Kidneys and Ureters: No hydronephrosis. No solid mass. No complex renal cystic lesion which requires follow up. Stomach and Bowel: Normal colonic caliber, without significant wall thickening. A few diverticula are seen in the colon without signs of acute diverticulitis. Stomach and small bowel are unremarkable. Peritoneum: No abnormal intraperitoneal fluid. No free air. Ventral Wall: No hernia. Abdominal Nodes: No retroperitoneal or mesenteric adenopathy by size criteria. Vessels: Aorta and inferior vena cava are normal in size. PELVIS: Pelvic Organs: Status post hysterectomy. No suspicious adnexal mass. Bladder: Unremarkable. Pelvic Nodes: No enlarged lymph nodes. Miscellaneous: No inguinal hernias are seen. Bones: Mild T12 compression fracture is of uncertain age. Multilevel degenerative changes are seen in the spine. No aggressive osseous lesion is identified. IMPRESSION: 1. No CT evidence of malignancy in the chest, abdomen, or pelvis. No source of weight loss identified. 2. Age-indeterminate mild compression fracture of the T12 vertebral body. Recommend correlation for point tenderness. Approved by: Henrik Billy M.D. on 08/10/2023 at 15:50
[2023-08-10 13:04] LABS: Estimated Glomerular Filt Rate 57 mL/min (>60)
== END ==
PROVIDERS: Radiology Diagnostic Radiology; PCP Physician Assistant Medical; Referring Provider Physician Assistant Medical; Visit Provider Physician Assistant Medical
DX: R63.4 Abnormal weight loss (principal); J45.909 Unspecified asthma, uncomplicated; M48.54XA Collapsed vertebra, not elsewhere classified, thoracic region, initial encounter for fracture; R91.8 Other nonspecific abnormal finding of lung field; I25.10 Atherosclerotic heart disease of native coronary artery without angina pectoris; I34.81 Nonrheumatic mitral (valve) annulus calcification; K57.90 Diverticulosis of intestine, part unspecified, without perforation or abscess without bleeding; Z90.710 Acquired absence of both cervix and uterus
CPT/HCPCS: 36415; 71260; 74177; 82565; Q9967

== ENCOUNTER 2023-10-23 15:15 | Emergency (ER) | payer MEDICARE, OTHER, SELFPAY ==
[2023-10-23 15:22] VITALS: BP 155/70; PULSE 90; RESP 20; TEMP 36.9; O2SAT 94; BMI 17.2
--- NOTE | 2023-10-23 16:01 | ED.FALL ---
HPI - Fall <Rosemary Hawk PA-C - Last Filed: 10/23/23 17:25> General Chief Complaint: Fall Stated Complaint: Fall, head injury Time Seen by Provider: 10/23/23 16:01 History of Present Illness HPI Narrative: This is an 88-year-old woman who takes daily aspirin, with history of gait difficulty/balance issues per family who presents with family today with concern for a fall with head injury. Family and patient state that she lost her balance while she was in the garage and fell backwards hitting her head about 3 ft into her fall on the corner of the [place] causing a laceration at which point she continued to fall down to the ground but did not hit her head on the concrete floor or sustain any other injuries. Family states she did not lose consciousness and this was a witnessed fall. They state that there was a fair amount of bleeding at 1st but they were able to get it controlled with direct pressure of the scalp. They are unsure exactly where the wound is as her hair became matted. Patient denies headache, vision change, nausea, neck pain, numbness or tingling of the extremities, vomiting or any other pain or complaints. She also denies prodrome of dizziness lightheadedness palpitations or other. This was a mechanical fall 2nd to her chronic gait difficulties. She has been in her usual state of health with no other recent illness or symptoms. Related Data Home Medications Medication Instructions Recorded Confirmed albuterol sulfate 90 mcg/actuation 1 puff inhalation Q6H PRN Allergic 02/27/19 06/21/22 aerosol inhaler (ProAir HFA) Symptoms amitriptyline 25 mg tablet 25 mg PO DAILY 02/27/19 06/21/22 aspirin 81 mg tablet,delayed 81 mg PO DAILY 02/27/19 06/21/22 release (Adult Aspirin Regimen) calcium carb-vit D3-minerals 600 1 tab PO BID 02/27/19 04/13/20 mg calcium-400 unit tablet triamterene 37.5 1 cap PO DAILY 02/27/19 06/21/22 mg-hydrochlorothiazide 25 mg capsule Previous Rx's Medication Instructions Recorded estradiol 0.01% (0.1 mg/gram) See Rx Instructions .Route 09/01/21 vaginal cream .COMPLEX #42.5 grams Allergies Allergy/AdvReac Type Severity Reaction Status Date / Time No Known Drug Allergies Allergy Verified 10/23/23 15:30 Review of Systems <Rosemary Hawk PA-C - Last Filed: 10/23/23 17:25> Review of Systems Narrative: See HPI Patient History <Rosemary Hawk PA-C - Last Filed: 10/23/23 17:25> Medical History Pelvic relaxation Cystocele Asthma Surgical History Status post cataract extraction and insertion of intraocular lens of right eye History of total abdominal hysterectomy and bilateral salpingo-oophorectomy S/P tonsillectomy Social History household members: spouse Smoking Status: Never smoker alcohol intake: never Smoking Status: Never smoker alcohol intake frequency: holidays/special occasions only Substance Use Type: does not use Exam <Rosemary Hawk PA-C - Last Filed: 10/23/23 17:25> Narrative Exam Narrative: GENERAL: 88 year old patient appears stated age. Well-developed patient, in mild distress. HEAD: There is matted dried hair with blood posterior aspect of the patient's scalp, after washout and cleanup there is a laceration approximately 1 cm in length on the patient's posterior parietal region, there are bridges of attached tissue and so the laceration does not spread open because of this it is an incomplete laceration. Bleeding is controlled after washout with no direct pressure needed. Otherwise Atraumatic. Normocephalic. EYES: Pupils equal round and reactive. Extraocular motions intact. No scleral icterus. No injection or drainage. ENT: Normal bite, Nose without bleeding, purulent drainage. Airway patent. NECK: Trachea midline. Non tender CARDIOVASCULAR: Regular rate and rhythm without murmurs, gallops, or rubs. RESPIRATORY: Clear to auscultation. Breath sounds equal bilaterally. No wheezes, rales, or rhonchi. GASTROINTESTINAL: Abdomen soft, non-tender, nondistended. EXTREMITIES: No edema or joint tenderness. BACK: No midline deformity step-off or tenderness of the C-spine T-spine or L-spine. Some mild Spinal curvature consistent with scoliosis. Nontender without deformity or crepitance. No flank tenderness. NEURO: AOx3. SKIN: See head No rash or erythema of visible areas Initial Vital Signs Initial Vital Signs: Vital Signs Temperature 98.5 F 10/23/23 15:22 Pulse Rate 90 10/23/23 15:22 Respiratory Rate 20 10/23/23 15:22 Blood Pressure 155/70 H 10/23/23 15:22 Pulse Oximetry 94 10/23/23 15:22 Oxygen Delivery Method Room Air 10/23/23 15:22 <Flora Earl DO - Last Filed: 10/25/23 09:14> Initial Vital Signs Initial Vital Signs: Vital Signs Temperature 98.5 F 10/23/23 15:22 Pulse Rate 90 10/23/23 15:22 Respiratory Rate 20 10/23/23 15:22 Blood Pressure 155/70 H 10/23/23 15:22 Pulse Oximetry 94 10/23/23 15:22 Oxygen Delivery Method Room Air 10/23/23 15:22 Procedures <BRITTANY Maxwell Last Filed: 10/23/23 17:25> Laceration Repair Laceration 1: Time of procedure: 17:05 Site: scalp Side (If applicable): left Size (cm): 1.5 Description: linear and other (Skin bridges crossing middle of the laceration tear/laceration well-aligned) Depth: simple, single layer Local Anesthetic: other anesthetic (None) Pre-repair: wound explored, irrigated extensively and deep structures intact Skin layer closed with: dermabond Technique: other (2 layer Dermabond, hairs pulled across wound to hold it together prior to Dermabond) Course <BRITTANY Maxwell Last Filed: 10/23/23 17:25> Orders Ordered: ED Orders 10/23/23 16:09 CT cervical spine wo con Stat CT head/brain wo con Stat Vital Signs Vital signs: Vital Signs - 8 hr 10/23/23 15:22 10/23/23 17:13 Temperature 98.5 F Pulse Rate 90 95 H Respiratory Rate 20 Blood Pressure 155/70 H 139/62 Pulse Oximetry 94 93 Oxygen Delivery Method Room Air Room Air <DO Bryan Muhammad Last Filed: 10/25/23 09:14> Orders Ordered: ED Orders 10/23/23 16:09 CT cervical spine wo con Stat CT head/brain wo con Stat Vital Signs Vital signs: Vital Signs - 8 hr 10/23/23 15:22 10/23/23 17:13 Temperature 98.5 F Pulse Rate 90 95 H Respiratory Rate 20 Blood Pressure 155/70 H 139/62 Pulse Oximetry 94 93 Oxygen Delivery Method Room Air Room Air MDM - Fall <Rosemary Hawk PA-C - Last Filed: 10/23/23 17:25> Differential Diagnosis Differential diagnosis: Likely other (closed head injury, laceration, fall) Imaging Data CT - cervical spine: Radiologist's Impression: [address] [address] [address] Scan Report Signed Patient: Roberta Kothari MR#: [id number] : 1935 Acct:[id number] Age/Sex: 88 / F Date of Service: 10/23/23 Loc: ED Accession Number: [id number] Procedure: CT cervical spine wo con Ordering Provider: Rosemary Hawk P.A-C PROCEDURE: CT CERVICAL SPINE WO CON INDICATIONS: fall, head injury TECHNIQUE: Noncontrast 3 mm thick sections acquired from the skull base to the T4 level. Sagittal and coronal reformats were then constructed. For radiation dose reduction, the following was used: automated exposure control, adjustment of mA and/or kV according to patient size. COMPARISON: None. FINDINGS: Image quality: Excellent. Bones: No fractures or dislocations. Loss of disc height, degenerative endplate changes and bilateral facet hypertrophic changes are noted throughout cervical spine. Dorsal disc osteophyte complex formation throughout cervical spine is seen causing [id number] central canal stenosis and bilateral neural foraminal narrowing. Visualized superior ribs are intact. Soft tissues: Prevertebral soft tissues are normal in thickness. No paravertebral hematomas. No apical pneumothoraces. IMPRESSION: 1. No acute cervical spine fracture or dislocation. 2. Degenerative disc disease throughout cervical spine. Dictated by: Gerald Estevez M.D. on 10/23/2023 at 16:34 Approved by: Gerald Estevez M.D. on 10/23/2023 at 16:35 CT scan - head: Radiologist's Impression: ? Brain:? No intracranial bleeds or masses.? There is cerebral volume loss for age, with? resultant ventricular and sulcal prominence.? There are periventricular and deep white? matter chronic small vessel ischemic changes.? 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 ? Skull and face:? Left posterior parietal scalp hematoma is seen.? Calvarium and? visualized facial bones appear intact, without suspicious lesions.?? ? Sinuses:? Visualized sinuses and mastoids are clear.? IMPRESSION:?? ? 1. No acute intracranial bleed, midline shift or mass effect. ? 2. No gross acute skull fracture.? Mild left posterior parietal scalp hematoma.? ? 3. Age related volume loss and extensive white matter chronic small vessel ischemic? changes.? Dictated by: Gerald Estevez M.D. on 10/23/2023 at 16:33? ? ? Approved by: Gerald Estevez M.D. on 10/23/2023 at 16:33?? MDM Narrative Medical decision making narrative: This is a well-appearing 88-year-old woman who presents with family with concern for fall with head injury today with laceration to the back of her head. She has no concerning signs and symptoms of concussion or severe head injury and mechanism was not extreme she did not fall all the way to the ground before hitting her head, however given her age and that she takes aspirin she is sent for head and neck CT which returned unremarkable except for some chronic arthritis/degenerative changes of the cervical spine. After washout, examination of the scalp revealed a laceration with skin bridges across it laceration approximately 1 cm in length it does not gape open decision was made to close with glue rather than suture/staple. Good results with closure. Advised regarding care of this area and monitoring for symptoms of closed head injury/intracranial bleed over the next 1-2 weeks. Return precautions provided, follow-up plan discussed, all questions answered. Discharge Plan Departure Patient Disposition: Home Clinical Impression: Superficial laceration of scalp Qualifiers: Encounter type: initial encounter Qualified Code(s): S01.01XA - Laceration without foreign body of scalp, initial encounter Fall Qualifiers: Encounter type: initial encounter Qualified Code(s): W19.XXXA - Unspecified fall, initial encounter Head injury, acute, without loss of consciousness Qualifiers: Encounter type: initial encounter Qualified Code(s): S09.90XA - Unspecified injury of head, initial encounter Activity Restrictions/Additional Instructions: *You have been diagnosed with [scalp laceration, head injury, fall] *What to do: *Please continue to take your regular medications as directed. [ ] New medication prescriptions sent to your pharmacy: [ ] [ ] New medication written as a paper prescription [ X] No new medications given *Please follow up with your primary care provider in 2-3 days, call for an appointment. Let them know you were seen in the Emergency Department and that we ask that you be seen in follow up. We will electronically transmit a record of today's note if your PCP is in our system. Roberta had a fall today and hit her head on the [place] in the garage, she did have a laceration which we cleaned up and repaired with skin glue, you should try to keep this area dry for the next few days after that it is okay for her to shower and wash her hair normally but try not to scrub the area it may take 5-7 days for this area to heal well and there is some risk of repeat bleeding if she rubs the area during this window. Please monitor for signs of infection although I think this is unlikely to develop. Her CT scan of the head and neck looked good today, it is important to monitor for any new symptoms over the next 1-2 weeks as a normal looking scan today does not rule out all possibility of a problem in the brain that could develop slowly over time. Please have her re-evaluated with her primary care provider, she can continue all of her regular medications at this time. *If you do not have a primary care provider please contact the [facility] Resource line at [phone]. They will ask some questions about your medical history and help get you set up with a doctor in the community. *Return to Emergency Department if you should have any new, worsening or concerning symptoms, such as [fever greater than 101 F, shaking chills, worsening pain, persistent vomiting or other bothersome symptoms] Prescriptions: No Action estradiol 0.01 % (0.1 mg/gram) cream See Rx Instructions .ROUTE .COMPLEX Qty: 42.5 0RF Dose Instruction: INSERT 0.5G VAGINALLY TWICE WEEKLY Rx Instructions: INSERT 0.5G VAGINALLY TWICE WEEKLY aspirin [Adult Aspirin Regimen] 81 mg tablet,delayed release (DR/EC) 81 mg PO DAILY triamterene-hydrochlorothiazid 37.5-25 mg capsule 1 cap PO DAILY amitriptyline 25 mg tablet 25 mg PO DAILY albuterol sulfate [ProAir HFA] 90 mcg/actuation HFA aerosol inhaler 1 puff INHALATION Q6H PRN (Reason: Allergic Symptoms) calcium carbonate-vit D3-min 600 mg calcium- 400 unit tablet 1 tab PO BID Referrals: Nery Ross PA-C [Primary Care Provider] - Stand Alone Forms: Patient Portal/API ED Sign-out <Flora Earl DO - Last Filed: 10/25/23 09:14> Cosign ED Attending No Attestation: I was available for consultation.
--- NOTE | 2023-10-23 16:09 | DI.CT.S_ITS ---
PROCEDURE: CT CERVICAL SPINE WO CON INDICATIONS: fall, head injury TECHNIQUE: Noncontrast 3 mm thick sections acquired from the skull base to the T4 level. Sagittal and coronal reformats were then constructed. For radiation dose reduction, the following was used: automated exposure control, adjustment of mA and/or kV according to patient size. COMPARISON: None. FINDINGS: Image quality: Excellent. Bones: No fractures or dislocations. Loss of disc height, degenerative endplate changes and bilateral facet hypertrophic changes are noted throughout cervical spine. Dorsal disc osteophyte complex formation throughout cervical spine is seen causing [id number] central canal stenosis and bilateral neural foraminal narrowing. Visualized superior ribs are intact. Soft tissues: Prevertebral soft tissues are normal in thickness. No paravertebral hematomas. No apical pneumothoraces. IMPRESSION: 1. No acute cervical spine fracture or dislocation. 2. Degenerative disc disease throughout cervical spine. Dictated by: Gerald Estevez M.D. on 10/23/2023 at 16:34 Approved by: Gerald Estevez M.D. on 10/23/2023 at 16:35
--- NOTE | 2023-10-23 16:09 | DI.CT.S_ITS ---
PROCEDURE: CT HEAD/BRAIN WO CON INDICATIONS: fall/Hit back of head, no LOC +aspirin TECHNIQUE: Noncontrast 4.5 mm thick angled axial sections acquired from the foramen magnum to the vertex, with coronal and sagittal reformats. For radiation dose reduction, the following was used: automated exposure control, adjustment of mA and/or kV according to patient size. COMPARISON: None. FINDINGS: Image quality: Diagnostic. CSF spaces: Basal cisterns are patent. No extra-axial fluid collections. The ventricles are symmetric in size and shape. Brain: No intracranial bleeds or masses. There is cerebral volume loss for age, with resultant ventricular and sulcal prominence. There are periventricular and deep white matter chronic small vessel ischemic changes. There is intracranial internal carotid artery atherosclerosis. Skull and face: Left posterior parietal scalp hematoma is seen. Calvarium and visualized facial bones appear intact, without suspicious lesions. Sinuses: Visualized sinuses and mastoids are clear. IMPRESSION: 1. No acute intracranial bleed, midline shift or mass effect. 2. No gross acute skull fracture. Mild left posterior parietal scalp hematoma. 3. Age related volume loss and extensive white matter chronic small vessel ischemic changes. Dictated by: Gerald Estevez M.D. on 10/23/2023 at 16:33 Approved by: Gerald Estevez M.D. on 10/23/2023 at 16:33
[2023-10-23 17:13] VITALS: BP 139/62; PULSE 95; O2SAT 93
== END 2023-10-23 17:27 | disposition home or self-care (01) ==
PROVIDERS: Emergency Provider Student in an Organized Health Care Education/Training Program; PCP Physician Assistant Medical
DX: S01.01XA Laceration without foreign body of scalp, initial encounter (principal); W01.198A Fall on same level from slipping, tripping and stumbling with subsequent striking against other object, initial encounter; Z79.82 Long term (current) use of aspirin
CPT/HCPCS: 12001; 70450; 72125; 99283